=== PATIENT | female | born 1970 | race African-American/Black ===

== ENCOUNTER 2018-03-07 21:59 | Inpatient (IN) | payer MEDICAID ==
[~2018-03-07] VITALS: Ht 152.4 cm; Wt 137.5 kg
--- NOTE | ~2018-03-07 | EC ---
PATIENT:DANNY SOLORIO DATE OF SERVICE: 03/07/18 SEX: F MEDICAL RECORD: [id number] DATE OF : [birth year] LOCATION:D.M2 D.212 AGE OF PATIENT: 47 ADMISSION DATE: 03/07/18 REFERRING PHYSICIAN: INTERPRETING PHYSICIAN: GENE BURNS MD ECHOCARDIOGRAM REPORT ECHO CHARGES 4 ECHO COMPLETE Date: 03/08 CLINICAL DIAGNOSIS: CHF HX OF HTN ECHOCARDIOGRAPHIC MEASUREMENTS (adult normal given) AC root (d.<3.7cm) 3.7 cm LV Septum d (<1.2 cm> 1.3 cm Valve Excursion 1.6 cm LV Septum (systole) 1.6 cm Left Atria (s.<4.0cm> 3.9 cm LVPW d(<1.2cm) 1.7 cm RV (d.<2.3cm) 4.0 cm LVPW (sytole) 1.8 cm LV diastole(<5.6CM) 4.5 cm MV E-F(>70mm/sec) cm LV systole 3.4 cm LVOT Diameter 1.7 cm MV exc.(>10mm) 1.3 cm Est.ejection fraction (50-75%) % DOPPLER: LVIT cm/sec A 91.0 cm/sec E 93.0 cm/sec LA cm/sec RVSP 31 mmHg LVOT 84 cm/sec AOP1/2T m/s Asc. Ao 112 cm/sec RVOT 101 cm/sec RA cm/sec PA 159 cm/sec AV Gradient Peak 3.1 mmHg AV Mean 1.5 mmHg AV Area 1.6 cm MV Gradient Peak 4.37 mmHg MV Mean 2.08 mmHg MV Area cm COMMENTS: Strategic Buyer: Yanira JOHNSON Roller Inspector: 1 Dr. Burns TAPE# PACS Pericardial Effusion N DATE OF SERVICE: 03/08/2018 PROCEDURE: Echocardiogram. FINDINGS: 1. Left ventricular chamber size is within normal limits. Left ventricular systolic function is normal. Overall ejection fraction estimated at 55%. 2. Left atrium is within normal limits at 3.9 cm. Right atrium and right ventricle chamber sizes are mildly dilated. 3. Valvular structures have normal structure and motion. ECHOCARDIOGRAM REPORT [id number] DANNY SOLORIO 4. Doppler interrogation only reveals trace tricuspid regurgitation, no other valvular insufficiency or stenosis and pulmonary systolic pressure is estimated 31 mmHg. 5. No evidence of pericardial effusion or left ventricular thrombus. TRANSINT:[id number] Voice Confirmation ID: [id number] DOCUMENT ID: [id number] GENE BURNS MD at 1056 CC: [id number] DICTATION DATE: 03/09/18 0944 SUPERINTENDENT TRACK: 03/09/18 1056 DIS IN 03/10/18 [id number] [place] [address]
[2018-03-07 21:00] VITALS: BP 147/91
[2018-03-07 22:00] VITALS: BP 126/76
[2018-03-07] MEDS ORDERED: ASPIRIN EC81 M1 PO (22:21)
[2018-03-07] MEDS ORDERED: FUROSEMIDE40 MG PO (22:22)
[2018-03-07] MEDS ORDERED: PROTONIX40 MG PO (22:22)
[2018-03-07] MEDS ORDERED: NEURONTIN 400400 MG PO (22:24)
[2018-03-07] MEDS ORDERED: SENNA LAXATIVE8.6 MG PO (22:24)
[2018-03-07] MEDS ORDERED: SYMBICORT 80-10.2 GM INH (22:26)
[2018-03-07] MEDS ORDERED: COZAAR50 MG (22:26)
[2018-03-07] MEDS ORDERED: IPRAT-ALBUT 0.5-3 ML UPD (22:29)
[2018-03-07] MEDS ORDERED: LOVENOX40 MG/0.4 SC (22:29)
[2018-03-07] MEDS ORDERED: BENZONATATE200 MG PO (22:31)
[2018-03-07] MEDS ORDERED: SODIUM CL 0.91000 ML IV (22:36)
[2018-03-07] MEDS ORDERED: MERREM 1 GM/NS 11 G1 IV (22:37)
[2018-03-07] MEDS ORDERED: ACETAMINOPHEN500 M1 PO (22:38)
[2018-03-07] MEDS ORDERED: MAXIFED DM LIQ473 ML PO (22:42)
[2018-03-07 22:54] VITALS: BP 120/85
[2018-03-07 23:00] VITALS: BP 129/87
[2018-03-08] VITALS (11 sets, daily range): BP systolic 99–159; BP diastolic 69–99; Ht 152.4 cm; Wt 137.5 kg
[2018-03-08 04:53] LABS: BASOPHILS 0.2 % (0-2); EOSINOPHILS 2.6 % (0-7); HEMATOCRIT 32.4 % (36.0-48.0); HEMOGLOBIN 9.1 g/dL (12-16); IMMATURE GRANULOCYTES 0.4 % (0-5); LYMPHOCYTES 22.4 % (15-50); MCH 24.3 pg (26.0-34.0); MCHC 28.1 g/dL (31.0-37.0); MCV 86.6 fL (80.0-100.0); MEAN PLATELET VOLUME 9.3 fL (7.4-10.4); MONOCYTES 7.5 % (2-11); NEUTROPHILS 66.9 % (40-80); PLATELET COUNT 305 10x3/uL (130-400); RBC 3.74 10x6/uL (4.00-5.40); RDW 18.7 % (11.5-14.5); WBC 12.2 10x3/uL (4.8-10.8)
[2018-03-08 05:09] LABS: CALC OSMOLALITY 282 mosm/kg (275-300); CALCIUM 8.7 mg/dL (8.5-10.1); CARBON DIOXIDE 36.5 mmol/L (21.0-32.0); CHLORIDE - SERUM 102 mmol/L (98-107); CREATININE - SERUM 0.7 mg/dL (0.6-1.3); GLUCOSE 99 mg/dL (74-106); POTASSIUM - SERUM 4.3 mmol/L (3.5-5.1); SODIUM 142 mmol/L (136-145); UREA NITROGEN 12 mg/dL (7-18); eGFR NON AFRICAN AMERICAN > 90 mL/min (90-120)
[2018-03-08 11:43] LABS: FERRITIN 42 ng/mL (3-244); PRO BNP 508 pg/mL (0-125)
[2018-03-08 11:47] LABS: % SATURATION 8 % (15-55); IRON 23 ug/dl (35-150); TOTAL IRON BIND CAPACITY 267 ug/dl (260-445); UNSAT IRON BIND CAPACITY 244 ug/dl (150-375)
[2018-03-08 17:14] LABS: APPEARANCE CLEAR (CLEAR); BILIRUBIN NEGATIVE (NEGATIVE); COLOR YELLOW (YELLOW); GLUCOSE NEGATIVE (NEGATIVE); KETONE NEGATIVE (NEGATIVE); NITRITE NEGATIVE (NEGATIVE); PROTEIN TRACE mg/dL (NEGATIVE); SPECIFIC GRAVITY 1.015 (1.005-1.020); UROBILINOGEN NORMAL (NORMAL)
[2018-03-08 17:15] LABS: BACTERIA FEW /hpf (NONE SEEN); RED CELLS - URINE 0-5 /hpf (0-5); WHITE CELLS - URINE 0-5 /hpf (0-5)
[2018-03-08] MEDS ORDERED: RISPERDAL2 MG PO (22:37)
[2018-03-08] MEDS ORDERED: KLONOPIN0.5 MG PO (22:38)
[2018-03-08] MEDS ORDERED: NORCO 7.5/325 T1 TA1 PO (22:39)
[2018-03-09 01:40] VITALS: BP 154/84
[2018-03-09 05:35] VITALS: BP 152/91
[2018-03-09 06:04] LABS: BASOPHILS 0.2 % (0-2); HEMOGLOBIN 9.7 g/dL (12-16); IMMATURE GRANULOCYTES 0.5 % (0-5); LYMPHOCYTES 21.9 % (15-50); MCH 25.2 pg (26.0-34.0); MCHC 29.4 g/dL (31.0-37.0); MCV 85.7 fL (80.0-100.0); MEAN PLATELET VOLUME 9.3 fL (7.4-10.4); MONOCYTES 6.5 % (2-11); NEUTROPHILS 68.9 % (40-80); PLATELET COUNT 319 10x3/uL (130-400); RBC 3.85 10x6/uL (4.00-5.40); RDW 18.3 % (11.5-14.5); WBC 11.6 10x3/uL (4.8-10.8)
[2018-03-09 06:13] LABS: CALC OSMOLALITY 289 mosm/kg (275-300); CALCIUM 9.2 mg/dL (8.5-10.1); CARBON DIOXIDE 38.7 mmol/L (21.0-32.0); CHLORIDE - SERUM 103 mmol/L (98-107); CREATININE - SERUM 0.7 mg/dL (0.6-1.3); GLUCOSE 129 mg/dL (74-106); POTASSIUM - SERUM 3.8 mmol/L (3.5-5.1); SODIUM 145 mmol/L (136-145); UREA NITROGEN 11 mg/dL (7-18); eGFR NON AFRICAN AMERICAN > 90 mL/min (90-120)
[2018-03-09 08:57] VITALS: BP 146/90
[2018-03-09 09:18] LABS: FOLATE (FOLIC ACID) - SERUM 9.3 ng/mL (>3.0)
[2018-03-09 12:16] VITALS: BP 133/72
[2018-03-09 16:10] VITALS: BP 154/94
[2018-03-09 20:00] VITALS: BP 140/82
[2018-03-10 04:00] VITALS: BP 140/93
[2018-03-10 05:57] LABS: BASOPHILS 0.2 % (0-2); EOSINOPHILS 2.4 % (0-7); HEMATOCRIT 33.9 % (36.0-48.0); HEMOGLOBIN 9.8 g/dL (12-16); IMMATURE GRANULOCYTES 0.5 % (0-5); LYMPHOCYTES 18.5 % (15-50); MCH 24.4 pg (26.0-34.0); MCHC 28.9 g/dL (31.0-37.0); MCV 84.5 fL (80.0-100.0); MEAN PLATELET VOLUME 9.3 fL (7.4-10.4); MONOCYTES 6.1 % (2-11); NEUTROPHILS 72.3 % (40-80); PLATELET COUNT 332 10x3/uL (130-400); RBC 4.01 10x6/uL (4.00-5.40); RDW 18.5 % (11.5-14.5); WBC 12.9 10x3/uL (4.8-10.8)
[2018-03-10 06:25] LABS: CALC OSMOLALITY 290 mosm/kg (275-300); CALCIUM 9.1 mg/dL (8.5-10.1); CARBON DIOXIDE 38.9 mmol/L (21.0-32.0); CHLORIDE - SERUM 103 mmol/L (98-107); CREATININE - SERUM 0.7 mg/dL (0.6-1.3); GLUCOSE 125 mg/dL (74-106); POTASSIUM - SERUM 3.5 mmol/L (3.5-5.1); SODIUM 146 mmol/L (136-145); UREA NITROGEN 9 mg/dL (7-18); eGFR NON AFRICAN AMERICAN > 90 mL/min (90-120)
[2018-03-10 09:35] VITALS: BP 193/113
== END 2018-03-10 18:22 | disposition home or self-care (01) | DRG 292 ==
LOC: D.M2 21:59 → D.ICU 21:59 → D.M2 03-08 19:35
PROVIDERS: Internal Medicine Nephrology
DX: I11.0 Hypertensive heart disease with heart failure (principal); Z68.43 Body mass index [BMI] 50.0-59.9, adult; I50.23 Acute on chronic systolic (congestive) heart failure; E66.01 Morbid (severe) obesity due to excess calories; F41.8 Other specified anxiety disorders; K21.9 Gastro-esophageal reflux disease without esophagitis; D50.9 Iron deficiency anemia, unspecified; Z86.73 Personal history of transient ischemic attack (TIA), and cerebral infarction without residual deficits; Z91.19 Patient's noncompliance with other medical treatment and regimen; Z72.0 Tobacco use